=== PATIENT | male | born 1975 | race Hispanic/Latino ===

== ENCOUNTER 2019-08-27 08:05 | Emergency (ER) | payer SELFPAY ==
[2019-08-27 08:51] LABS: #Basophils 0.1 thou/uL (0.0-0.2); #Eosinphils 0.1 thou/uL (0.0-0.7); #Lymphocytes 1.5 thou/uL (1.20-3.40); #Monocytes 0.4 thou/uL (0.11-0.59); #Neutrophils 5.1 thou/uL (1.40-6.50); %Basophils 0.8 % (0.0-1.0); %Eosinophils 0.9 % (0.0-10.0); %Lymphocytes 21.2 % (21.0-51.0); %Monocytes 5.2 % (0.0-10.0); Hemoglobin 15.7 g/dL (14.0-18.0); Mean Corpuscular HGB CONC 33.5 g/dL (32.0-36.0); Mean Corpuscular Volume 92.5 fL (78.0-98.0); Mean Platelet Volume 7.7 fL (7.4-10.4); Platelet Count 252 thou/uL (130-400); RBC Distribution Width 11.3 % (11.5-14.5); Red Blood Cell (RBC) Count 5.06 mill/uL (4.70-6.10); White Blood Cell (WBC) Count 7.1 thou/uL (4.8-10.8)
[2019-08-27 09:21] LABS: ALT (SGPT) 34 U/L (8-55); AST (SGOT) 32 U/L (5-34); Albumin 4.5 g/dL (3.5-5.0); Alkaline Phosphatase 102 U/L (40-110); Anion Gap 12 mmol/L (10-20); BUN (Urea Nitrogen) 18 mg/dL (8.9-20.6); Bilirubin, Total 0.3 mg/dL (0.2-1.2); Calc. Creatinine Clearance 0 mL/min (70-130); Calcium 9.2 mg/dL (7.8-10.44); Carbon Dioxide 22 mmol/L (22-29); Chloride 107 mmol/L (98-107); Estimated GFR-MDRD Greater than 90; Globulin 3.1 g/dL (2.4-3.5); Glucose 103 mg/dL (70-105); Lipase 35 U/L (8-78); Potassium 4.3 mmol/L (3.5-5.1); Protein, Total 7.6 g/dL (6.0-8.3); Sodium 137 mmol/L (136-145)
[2019-08-27] MEDS ORDERED: Ondansetron PF 4 MG/2 ML Vial ONE (09:54)
--- NOTE | 2019-08-27 10:37 | CT ---
CT ABDOMEN AND PELVIS WITH IV CONTRAST 08/27/2019 CLINICAL INFORMATION: Upper abdominal pain and constipation. Nausea. COMPARISON: None. Technique: Multiple contiguous axial CT images are obtained through the abdomen and pelvis with IV contrast. Cor onal reformatted images are provided. FINDINGS: Lower Chest: Tiny less than 4 mm pulmonary nodule incompletely imaged right lateral lung base. Vessels: Abdominal aorta is normal in caliber without evidence of an aortic dissection. Abdomen: Portal vein:Patent Gallbladder: Within normal limits for CT imaging. Liver: A subcentimeter too small to characterize hypodense lesion is seen in the anterior segment rig ht hepatic lobe. Spleen: within normal limits. Pancreas: within normal limits. Adrenals: within normal limits. Kidneys: within normal limits. Bowel: Small amount retained fecal material seen throughout the colon. Loops of small bowel are tono l in caliber. Appendix: The appendix is visualized and normal in caliber. Peritoneum: Few coarse calcifications are seen in the right lower quadrant which may represent calcif ied lymph nodes. Mesentery and Retroperitoneum: No enlarged mesenteric or retroperitoneal lymph nodes. Abdominal Wall: within normal limits. Pelvis: Reproductive Organs: No pelvic masses. Pelvis within normal limits. Bladder: within normal limits. Bones: Minimal degenerative changes lower thoracic spine as well as lower lumbar spine IMPRESSION: 1. No acute findings are seen in the abdomen or pelvis. 2. Subcentimeter too small to characterize hypodense lesion right lung base. 3. Subcentimeter too small to characterize hypodense lesion right hepatic lobe.
[2019-08-27 11:31] LABS: Bilirubin Negative (Negative); Blood, Urine Negative (Negative); Clarity Clear (Clear); Glucose, Urine (Dipstick) Normal (Negative); Leukocyte Negative Leu/uL (Negative); Nitrite Negative (Negative); Protein, Urine (Dipstick) Negative (Neg-Trace); Urobilinogen Normal mg/dL (Less than 2)
[2019-08-27] MEDS ORDERED: Iopamidol-370 76% 500 ML 1 ML ONE (14:29)
== END 2019-08-27 11:47 | disposition home or self-care (01) ==
LOC: ERS 08:05
DX: K59.00 Constipation, unspecified (principal); F17.210 Nicotine dependence, cigarettes, uncomplicated; R91.1 Solitary pulmonary nodule
CPT/HCPCS: 36415; 74177; 80053; 81003; 83690; 84484; 85025; 93005; 96372; 96374; J0500; J2405; Q9967